=== PATIENT | female | born 1955 | race Hispanic/Latino ===

== ENCOUNTER 2019-03-05 23:54 | Observation (INO) | payer SELFPAY ==
[2019-03-06] MEDS ORDERED: Aspirin Chewable 81 MG TAB ONE (00:19)
[2019-03-06] MEDS ORDERED: cloNIDine 0.1 MG TAB ONE (00:19)
[2019-03-06 00:31] LABS: #Basophils 0.1 thou/uL (0.0-0.2); #Eosinphils 0.2 thou/uL (0.0-0.7); #Lymphocytes 4.1 thou/uL (1.20-3.40); #Monocytes 0.6 thou/uL (0.11-0.59); #Neutrophils 4.7 thou/uL (1.40-6.50); %Basophils 0.6 % (0.0-1.0); %Eosinophils 1.9 % (0.0-10.0); %Lymphocytes 42.3 % (21.0-51.0); %Monocytes 6.6 % (0.0-10.0); %Neutrophils 48.6 % (42.0-75.0); Hemoglobin 12.7 g/dL (12.0-16.0); Mean Corpuscular HGB CONC 32.8 g/dL (32.0-36.0); Mean Corpuscular Hemoglobin 31.1 pg (27.0-31.0); Mean Corpuscular Volume 94.7 fL (78.0-98.0); Mean Platelet Volume 7.9 fL (7.4-10.4); Platelet Count 290 thou/uL (130-400); RBC Distribution Width 12.2 % (11.5-14.5); Red Blood Cell (RBC) Count 4.08 mill/uL (4.20-5.40); White Blood Cell (WBC) Count 9.7 thou/uL (4.8-10.8)
[2019-03-06 00:37] LABS: INR-International Normal Ratio 0.8; PTT 26.8 SEC (22.9-36.1); Prothrombin Time 11.5 SEC (12.0-14.7)
[2019-03-06 00:51] LABS: ALT (SGPT) 24 U/L (8-55); AST (SGOT) 16 U/L (5-34); Albumin 4.1 g/dL (3.4-4.8); Alkaline Phosphatase 73 U/L (40-110); Anion Gap 19 mmol/L (10-20); BUN (Urea Nitrogen) 17 mg/dL (9.8-20.1); Bilirubin, Total 0.2 mg/dL (0.2-1.2); Calc. Creatinine Clearance 0 mL/min (70-130); Calcium 9.4 mg/dL (7.8-10.44); Carbon Dioxide 24 mmol/L (23-31); Chloride 99 mmol/L (98-107); Estimated GFR-MDRD 66; Globulin 2.9 g/dL (2.4-3.5); Glucose 218 mg/dL (80-115); Sodium 138 mmol/L (136-145)
[2019-03-06 03:04] VITALS: BMI 32.8
[2019-03-06 04:00] LABS: Troponin I Less than 0.010 ng/mL (< 0.028)
[2019-03-06] MEDS ORDERED: Ondansetron ODT 4 MG TAB PO PRN (04:34)
[2019-03-06] MEDS ORDERED: Acetaminophen 650 MG Suppository PR PRN (04:34)
[2019-03-06] MEDS ORDERED: Acetaminophen 325 MG TAB PO PRN (04:34)
[2019-03-06] MEDS ORDERED: Ondansetron PF 4 MG/2 ML Vial IVP PRN (04:34)
[2019-03-06] MEDS ORDERED: HumaLOG 300 UNITS/3 ML VIAL SC PRN ×2 (04:38)
[2019-03-06] MEDS ORDERED: Dextrose 5% in Water 1,000 ML IV PRN (04:38)
[2019-03-06] MEDS ORDERED: Dextrose 50% Abboject 50 ML SYRINGE SLOW IVP PRN (04:38)
--- NOTE | 2019-03-06 05:37 | HP ---
TIME OF ASSESSMENT: 299. CHIEF COMPLAINT: Elevated blood pressure and transient right-sided numbness/tingling. HISTORY OF PRESENT ILLNESS: Ms. Wisdom is a 63-year-old woman who presents to the hospital after experiencing sudden onset of right lower extremity numbness and tingling. Reports having numbness and tingling in her right hand and forearm. The patient states she was watching TV when this happened at around 10 p.m. She checked her blood pressure and states that it was high in the 180s range systolic. She states she had a similar episode like this a couple of days ago where her blood pressure was elevated and also associated with the numbness and tingling. The patient states she has been checking her blood pressure regularly at home when she is compliant with her medications, but notices that her blood pressure was high at times. She does not follow with her primary care physician regularly. At this present time, her symptoms have fully resolved and she is without any complaints. She denies experiencing any associated headaches, blurred vision, or speech disturbances. Denies experiencing any weakness. Her gait was normal and she denies any dizziness. All other review of systems is negative. In the emergency department, the patient was initially noted to be hypertensive at 232/104. She was treated with clonidine 0.1 mg p.o. and responded very well. She was also given aspirin 324 mg. She had an EKG done which showed normal sinus rhythm with a heart rate of [address] changes or T-wave abnormalities present. PAST MEDICAL HISTORY: 1. Hypertension. 2. Diabetes mellitus type 2. 3. Hyperlipidemia. PAST SURGICAL HISTORY: Hysterectomy. SOCIAL HISTORY: The patient reports smoking previously and quit less than 10 years ago. Denies any alcohol consumption or illicit drug use. She is fully independent, and lives with her . ALLERGIES: NO KNOWN DRUG ALLERGIES. CURRENT MEDICATIONS: 1. Lisinopril. 2. Aspirin. 3. Hydrochlorothiazide. 4. Metformin. 5. Metoprolol. 6. Simvastatin. 7. Magnesium. PHYSICAL EXAMINATION: GENERAL: The patient appears well developed, well nourished, is in no acute distress. VITAL SIGNS: NECK: Supple without lymphadenopathy. LUNGS: Clear to auscultation bilaterally without wheezes, rales, or rhonchi. CARDIAC: Regular rate and rhythm without audible murmurs, rubs, or gallops. ABDOMEN: Soft, nontender, nondistended. Normoactive bowel sounds present. EXTREMITIES: No lower leg swelling or edema. NEUROLOGIC: Alert and oriented x3. Sensation intact. Power 5/5 in all limbs. Facial movements normal. Facial sensation intact. No neuro deficits. IMPRESSION AND PLAN: Ms. Wisdom is a 63-year-old woman, with hypertension, hyperlipidemia, and diabetes mellitus, who presents with complaints of elevated blood pressure associated with right-sided numbness and tingling in her right leg and right hand/forearm. She has been referred for management of the following. 1. Transient ischemic attack rule out. The patient denies having any weakness. Denies any speech disturbances. She states numbness and tingling started in her foot and began to open and involved her right hand and forearm and has resolved fully on its own. We will obtain a lipid panel in the morning. We will obtain carotid Dopplers and a CT of the brain. Further workup as per Day Team. Echo will be requested as well. 2. Hypertensive urgency. She did present with a severely elevated blood pressure with systolic in the 200s that responded very well to clonidine. This was likely the cause of her symptoms. We will continue to monitor her blood pressure and manage accordingly. Resume home medications once verified. 3. Hyperlipidemia. Resume home medications once verified. We will continue her statin. 4. Diabetes mellitus. We will initiate insulin sliding scale. Monitor blood glucose. 5. Gastrointestinal prophylaxis with famotidine 2 mg p.o. b.i.d. 6. Deep venous thrombosis prophylaxis. The patient refusing mechanical sequential compression devices. She is ambulatory. 7. Code status is full. Her surrogate decision maker is her , Parth Wisdom. The patient's case discussed with attending who agrees with plan of care as described above. Job ID: [id number]
--- NOTE | 2019-03-06 07:49 | RAD ---
EXAM: Single view of the chest HISTORY: Chest pain COMPARISON: 07/03/2016 FINDINGS: Single view of the chest shows a normal sized cardiomediastinal silhouette. There is no grace dence of consolidation, mass, or pleural effusion. The bones are unremarkable. IMPRESSION: No evidence of acute cardiopulmonary disease
--- NOTE | 2019-03-06 07:57 | ULT ---
CAROTID ARTERIAL DOPPLER ULTRASOUND: 03/06/2019 HISTORY: Transient ischemic attack. COMPARISON: None. TECHNIQUE: Multiplanar anderson-scale sonographic imaging of the arterial structures of the neck obtained with color -flow and spectral analysis. FINDINGS: Scattered areas of atherosclerotic plaque noted within the distal CCA bilaterally as well as within t he proximal aspect of the right ICA. Antegrade blood flow and normal arterial wave-forms are noted within the carotid and vertebral system bilaterally. VESSEL PEAK SYSTOLIC VELOCITY (cm per second) Right CCA 89 Right ICA 63 Right ECA 136 Left CCA 68 Left ICA 120 Left ECA 106 ICA/CCA ratio is 0.7 on the right and 1.8 on the left. IMPRESSION: No hemodynamically significant stenosis on the basis of sonographic velocity criteria. Transcribed Date/Time: 03/06/2019 10:02 AM
--- NOTE | 2019-03-06 08:15 | CT ---
EXAM: CT brain without contrast HISTORY: Right hand and arm numbness for weeks COMPARISON: 02/22/2019 TECHNIQUE: Multiple contiguous axial images were obtained and a CT of the brain without contrast. FINDINGS: The brain is normal in morphology and attenuation without focal lesions or confluent areas of infarction. There is no evidence of hydrocephalus, intracranial hemorrhage, or extra-axial fluid collection. The calvarium and overlying soft tissues are unremarkable. The visualized paranasal sinuses and masto id air cells are well aerated. IMPRESSION: No evidence of acute intracranial abnormality
[2019-03-06] MEDS ORDERED: hydrALAZINE 25 MG TAB PO PRN (08:42)
[2019-03-06] MEDS ORDERED: Metoprolol Tartrate 25 MG TAB PO SCH ×2 (09:00→21:00)
[2019-03-06] MEDS ORDERED: LISINOPRIL 30 MG PO SCH (09:00)
[2019-03-06] MEDS ORDERED: Famotidine/PF 20 mg/2ml Vial SLOW IVP SCH (09:00)
[2019-03-06] MEDS ORDERED: Lisinopril 20 MG TAB PO SCH (09:00)
[2019-03-06] MEDS ORDERED: Aspirin Chewable 81 MG TAB PO SCH (09:00)
[2019-03-06] MEDS ORDERED: Hydrochlorothiazide 25 MG TAB PO SCH (09:00)
[2019-03-06] MEDS ORDERED: Aspirin 81 mg Enteric Coated Tablet PO SCH (09:00)
[2019-03-06] MEDS ORDERED: Simvastatin 40 MG TAB PO SCH (09:00)
[2019-03-06 12:18] VITALS: BP 144/76; TEMP 98.5
[2019-03-06 12:45] LABS: Troponin I 0.028 ng/mL (< 0.028)
--- NOTE | 2019-03-06 15:28 | PDOC.HOSPP ---
- Subjective Encounter Date: 03/06/19 Encounter Time: 15:26 Subjective: Ms. Wisdom was seen today in follow-up of uncontrolled hypertension and numbness in the right arm. Her symptoms have improved. - Objective Vital Signs & Weight: Vital Signs (12 hours) Temp Pulse Resp BP Pulse Ox 03/06/19 10:45 98.5 F 59 L 16 144/76 H 96 03/06/19 07:50 97.8 F 67 16 171/77 H 97 03/06/19 06:06 65 175/78 H 03/06/19 03:35 64 162/76 H Weight Weight 162 lb 6.4 oz I&O: 03/05/19 03/06/19 03/07/19 06:59 06:59 06:59 Intake Total 300 720 Output Total 600 Balance -300 720 Result Diagrams: 03/06/19 00:22 03/06/19 00:22 Additional Labs: Accuchecks 03/06/19 03/06/19 10:26 06:06 POC Glucose 195 H 255 H Hospitalist ROS - Medication Medications: Active Medications Generic Name Dose Route Start Last Admin Trade Name Freq PRN Reason Stop Dose Admin Aspirin 81 mg 03/06/19 09:00 03/06/19 09:36 Ecotrin PO 81 mg DAILY JORGE Administration Famotidine 20 mg 03/06/19 09:00 03/06/19 09:36 Pepcid SLOW IVP 20 mg Q12HR JORGE Administration Hydrochlorothiazide 25 mg 03/06/19 09:00 03/06/19 09:36 Hydrochlorothiazide PO 25 mg DAILY JORGE Administration Insulin Human Lispro 0 units 03/06/19 04:38 03/06/19 06:22 Humalog SC 4 unit .MILD SLIDING SCALE PRN Administration Mild Correctional Scale Lisinopril 30 mg 03/06/19 09:00 03/06/19 09:37 Zestril PO 30 mg DAILY JORGE Administration Simvastatin 40 mg 03/06/19 09:00 03/06/19 09:39 Zocor PO 40 mg DAILY JORGE Administration - Exam Eye: PERRL, anicteric sclera Heart: RRR, no murmur, no gallops, no rubs, normal peripheral pulses Respiratory: CTAB, no wheezes, no rales, no ronchi, normal chest expansion, no tachypnea, normal percussion Gastrointestinal: soft, non-tender, non-distended, normal bowel sounds, no palpable masses, no hepatomegaly Extremities: no cyanosis, no edema Hosp A/P (1) Hypertensive urgency Code(s): I16.0 - HYPERTENSIVE URGENCY Status: Acute (2) Hyperlipidemia Code(s): E78.5 - HYPERLIPIDEMIA, UNSPECIFIED Status: Acute - Plan * Hypertensive Urgency- improved- will add HTCZ scheduled, and low dose Hydralazine as needed * CT scan , Carotid dopplers, and Echo noted * Her symptoms are likely due to the elevated blood pressure * Stable for discharge home
--- NOTE | 2019-03-07 23:27 | DIS ---
DATE OF ADMISSION: 03/06/2019 DATE OF DISCHARGE: 03/06/2019 PRIMARY CARE PHYSICIAN: At the [facility]. DISCHARGE DISPOSITION: Home. DISCHARGE DIAGNOSES: 1. Hypertensive urgency. 2. Hypertension. 3. Diabetes mellitus. 4. Hyperlipidemia. DISCHARGE MEDICATIONS: 1. Hydrochlorothiazide 25 mg p.o. daily. 2. Hydralazine 10 mg t.i.d. as needed for elevated blood pressure systolic greater than 170. 3. Simvastatin 40 mg daily. 4. Metoprolol 25 mg daily. 5. Metformin 750 mg extended release daily. 6. Magnesium oxide 500 mg daily. 7. Lisinopril 30 mg daily. 8. Glimepiride 4 mg daily. 9. Aspirin 81 mg a day. PROCEDURES DONE DURING THIS ADMISSION: The patient had a CT scan of the brain, which was negative for any acute intracranial abnormalities. Bilateral carotid Dopplers which were negative for any flow-limiting disease and an echocardiogram showing an EF of 60% to 65% and mild diastolic dysfunction. HOSPITAL COURSE: Ms. Wisdom is a pleasant 63-year-old female, who was admitted to the hospital with numbness and tingling in her right upper extremity. She was also found to have a severely high blood pressure. She states that she is compliant with medications. She was admitted into the hospital due to concerns for possible transient ischemic attack. Stroke workup was negative. Hydrochlorothiazide dose was increased from 12.5 to 25 and she was also given a prescription for hydralazine as needed for elevated blood pressure. Instructions were given to the patient via the account resolution specialist. The patient was also instructed on diet and other nonpharmacological ways to help control blood pressure and was subsequently discharged home and to have close outpatient followup. Job ID: [id number]
== END 2019-03-06 16:37 | disposition home or self-care (01) ==
LOC: ERS 23:54 → 2SW 03-06 03:02
PROVIDERS: ADMIT Internal Medicine; ATTEND Internal Medicine
DX: I16.0 Hypertensive urgency (principal); I10 Essential (primary) hypertension; E11.9 Type 2 diabetes mellitus without complications; E78.5 Hyperlipidemia, unspecified; Z79.82 Long term (current) use of aspirin; Z79.84 Long term (current) use of oral hypoglycemic drugs; Z79.899 Other long term (current) drug therapy; Z87.891 Personal history of nicotine dependence; Z88.0 Allergy status to penicillin
CPT/HCPCS: 36415; 36416; 70450; 71045; 80053; 80061; 83880; 84484; 85025; 85610; 85730; 93005; 93306; 93880; 96374; G0378; S0028